=== PATIENT | female | born 1960 | race Caucasian/White ===

== ENCOUNTER → 2019-08-15 09:51 | Outpatient (BNVA) | payer MEDICARE, SELFPAY | PROVIDERS: Visit Provider Psychiatry & Neurology Psychiatry | DX: F33.2 Major depressive disorder, recurrent severe without psychotic features (principal) | CPT/HCPCS: 99213 ==

== ENCOUNTER → 2020-01-22 11:10 | Outpatient (BNVA) | payer MEDICARE, SELFPAY | PROVIDERS: Referring Provider Nurse Practitioner Family; Visit Provider Specialist | DX: M25.569 Pain in unspecified knee (principal) | CPT/HCPCS: 73560; 73565 ==

== ENCOUNTER 2020-02-15 12:13 | Outpatient (RCR) | payer MEDICARE, MEDICAID, SELFPAY | END 2020-03-13 23:59 | disposition home or self-care (01) | LOC: SPT 12:13 | PROVIDERS: PCP Nurse Practitioner Family; Visit Provider Specialist | DX: M17.12 Unilateral primary osteoarthritis, left knee (principal) | CPT/HCPCS: 97162; 99214 ==

== ENCOUNTER → 2020-06-20 08:35 | Outpatient (BNVA) | payer MEDICARE, SELFPAY | PROVIDERS: PCP Nurse Practitioner Family; Visit Provider Psychiatry & Neurology Psychiatry | DX: F41.1 Generalized anxiety disorder (principal); F33.1 Major depressive disorder, recurrent, moderate | CPT/HCPCS: 99213 ==

== ENCOUNTER → 2020-09-12 09:05 | Outpatient (BNVA) | payer MEDICARE, MEDICAID, SELFPAY | PROVIDERS: PCP Nurse Practitioner Family; Visit Provider Psychiatry & Neurology Psychiatry | DX: F41.1 Generalized anxiety disorder (principal); F33.1 Major depressive disorder, recurrent, moderate | CPT/HCPCS: 99213 ==

== ENCOUNTER → 2021-02-25 10:55 | Outpatient (BNVA) | payer MEDICARE, MEDICAID, SELFPAY | PROVIDERS: PCP Nurse Practitioner Family; Visit Provider Psychiatry & Neurology Psychiatry | DX: F41.1 Generalized anxiety disorder (principal); F33.1 Major depressive disorder, recurrent, moderate | CPT/HCPCS: 99214 ==

== ENCOUNTER → 2021-03-26 13:58 | Outpatient (BNVA) | payer MEDICARE, MEDICAID, SELFPAY | PROVIDERS: PCP Nurse Practitioner Family; Referring Provider Nurse Practitioner Family; Visit Provider Specialist | DX: M17.11 Unilateral primary osteoarthritis, right knee (principal) | CPT/HCPCS: 73560; 73565 ==

== ENCOUNTER → 2021-05-19 08:31 | Outpatient (BNVA) | payer MEDICARE, MEDICAID, SELFPAY | PROVIDERS: PCP Nurse Practitioner Family; Visit Provider Anesthesiology Pain Medicine | DX: M17.0 Bilateral primary osteoarthritis of knee (principal); M54.9 Dorsalgia, unspecified; Z87.891 Personal history of nicotine dependence | CPT/HCPCS: 99204 ==

== ENCOUNTER → 2021-05-20 13:23 | Outpatient (BNVA) | payer MEDICARE, MEDICAID, SELFPAY | PROVIDERS: PCP Nurse Practitioner Family; Visit Provider Psychiatry & Neurology Psychiatry | DX: F41.1 Generalized anxiety disorder (principal); F33.1 Major depressive disorder, recurrent, moderate | CPT/HCPCS: 99214 ==

== ENCOUNTER → 2021-06-16 10:16 | Outpatient (BNVA) | payer MEDICARE, MEDICAID, SELFPAY | PROVIDERS: PCP Nurse Practitioner Family; Visit Provider Anesthesiology Pain Medicine | DX: M17.0 Bilateral primary osteoarthritis of knee (principal); Z87.891 Personal history of nicotine dependence | CPT/HCPCS: 99214 ==

== ENCOUNTER → 2021-07-09 14:01 | Outpatient (BNVA) | payer MEDICARE, MEDICAID, SELFPAY | PROVIDERS: PCP Nurse Practitioner Family; Visit Provider Anesthesiology Pain Medicine | DX: Z87.891 Personal history of nicotine dependence (principal); M17.12 Unilateral primary osteoarthritis, left knee | CPT/HCPCS: 20610; 77002; J1030; J3490 ==

== ENCOUNTER → 2021-07-23 11:25 | Outpatient (BNVA) | payer MEDICARE, MEDICAID, SELFPAY | PROVIDERS: PCP Nurse Practitioner Family; Visit Provider Anesthesiology Pain Medicine | DX: M17.0 Bilateral primary osteoarthritis of knee (principal); M54.50 Low back pain, unspecified; Z87.891 Personal history of nicotine dependence | CPT/HCPCS: 99213 ==

== ENCOUNTER → 2021-09-16 12:40 | Outpatient (BNVA) | payer MEDICARE, MEDICAID, SELFPAY | PROVIDERS: PCP Nurse Practitioner Family; Visit Provider Psychiatry & Neurology Psychiatry | DX: F41.1 Generalized anxiety disorder (principal); F33.1 Major depressive disorder, recurrent, moderate | CPT/HCPCS: 99213 ==

== ENCOUNTER → 2021-12-09 07:17 | Outpatient (BNVA) | payer MEDICARE, MEDICAID, SELFPAY | PROVIDERS: PCP Nurse Practitioner Family; Visit Provider Psychiatry & Neurology Psychiatry | DX: F33.1 Major depressive disorder, recurrent, moderate (principal); F41.1 Generalized anxiety disorder | CPT/HCPCS: 99213 ==

== ENCOUNTER → 2022-03-31 08:44 | Outpatient (BNVA) | payer MEDICARE, SELFPAY | PROVIDERS: PCP Nurse Practitioner Family; Visit Provider Anesthesiology Pain Medicine | DX: M17.0 Bilateral primary osteoarthritis of knee (principal); Z87.891 Personal history of nicotine dependence; M54.9 Dorsalgia, unspecified | CPT/HCPCS: 99214 ==

== ENCOUNTER → 2022-04-13 13:55 | Outpatient (BNVA) | payer MEDICARE, MEDICAID, SELFPAY | PROVIDERS: PCP Nurse Practitioner Family; Visit Provider Anesthesiology Pain Medicine | DX: M17.9 Osteoarthritis of knee, unspecified (principal); M25.561 Pain in right knee; M25.562 Pain in left knee | CPT/HCPCS: 20610; J1040; J3490 ==

== ENCOUNTER → 2022-05-20 09:24 | Outpatient (BNVA) | payer MEDICARE, SELFPAY | PROVIDERS: PCP Nurse Practitioner Family; Visit Provider Anesthesiology Pain Medicine | DX: M17.0 Bilateral primary osteoarthritis of knee (principal); M54.9 Dorsalgia, unspecified | CPT/HCPCS: 99212 ==

== ENCOUNTER → 2022-09-28 12:46 | Outpatient (BNVA) | payer MEDICARE, SELFPAY | PROVIDERS: PCP Nurse Practitioner Family; Visit Provider Anesthesiology Pain Medicine | DX: M17.0 Bilateral primary osteoarthritis of knee (principal) | CPT/HCPCS: 20610 ==

== ENCOUNTER 2023-06-01 20:44 | Emergency (ER) | payer MEDICARE, MEDICAID, SELFPAY ==
[2023-06-01 20:46] VITALS: BP 185/89; PULSE 116; RESP 18; TEMP 36.7; O2SAT 96; BMI 71.2
--- NOTE | 2023-06-01 20:56 | XRR_ITS ---
PROCEDURE INFORMATION: Exam: XR Right Knee Exam date and time: 06/01/2023 9:06 PM Age: 62 years old Clinical indication: Pain; Knee; Right TECHNIQUE: Imaging protocol: Radiologic exam of the right knee. Views: 3 views. COMPARISON: No relevant prior studies available. FINDINGS: Bones/joints: Very severe tricompartment degenerative change with loss of joint space and osteophyte formation. No acute fracture or dislocation. Soft tissues: Unremarkable. XR/XR knee RT 3V* [id number] IMPRESSION: Very severe end-stage right knee DJD.
--- NOTE | 2023-06-01 20:56 | XRR_ITS ---
PROCEDURE INFORMATION: Exam: XR Left Knee Exam date and time: 06/01/2023 9:04 PM Age: 62 years old Clinical indication: Pain; Knee; Left TECHNIQUE: Imaging protocol: Radiologic exam of the left knee. Views: 3 views. COMPARISON: CR XR knees AP WB w LT lmt ORTH 01/22/2020 11:15 AM FINDINGS: Bones/joints: Very severe tricompartment degenerative change with loss of joint space and osteophyte formation. No acute fracture or dislocation. Soft tissues: Unremarkable. XR/XR knee LT 3V* [id number] IMPRESSION: Very severe end-stage left knee DJD.
[2023-06-01 20:59] VITALS: O2SAT 94
--- NOTE | 2023-06-01 20:59 | PC.NURSE ---
pt arrives on 3L NC, pt states she wears 3L at all times at home.
[2023-06-01] MEDS: HYDROcodone-acetaminophen 7.5-325 mg Tablet 1 TAB PO (21:42)
--- NOTE | 2023-06-01 21:44 | W.ED.EXTPRO ---
HPI - Extremity Problem General: Chief complaint: Extremity Problem,Nontraumatic Stated complaint: hip/leg pain Time Seen by Provider: 06/01/23 20:46 Source: patient and EMS Mode of arrival: EMS Limitations: no limitations History of Present Illness: 62-year-old female history of morbid obesity along with chronic knee pain she has been seeing pain management but states she has not seen her pain management in roughly 5 to 6 months. States she has been having increasing knee pain bilaterally and more difficult time walking. She does walk with a cane and a walker denies any injuries states her pains improved with rest Associated symptoms: Deny chest pain, fever(s) or rash Review of Systems Const: Denies: fever(s) or chills ENMT: Denies: throat pain or dental pain Card: Denies: chest pain Resp: Denies: dyspnea GI: Denies: abdominal pain, nausea, vomiting or diarrhea Musc: Reports: extremity pain; Denies: neck pain or back pain Skin/Breast: Denies: rash Neuro: Denies: headache(s) PFSH ED PFSH: Medical History Psychiatric care High cholesterol Anxiety Hypertension Stomach ulcer due to nonsteroidal anti-inflammatory drug (NSAID) Surgical History History of carpal tunnel release (~1997) JASON History of bunionectomy (~1994) Right foot History of weight loss surgery (~2015) Dr. Celestin at [facility] in [place], [place] History of hernia repair (~1997) Family History Mother Cancer Skin Cancer Denies family history of CAD (coronary artery disease) Anesthesia complication Social History Smoking and tobacco/nicotine status: former use of tobacco/nicotine Quit status (tobacco/nicotine): has quit using Year quit tobacco: 2000 Second hand smoke exposure: No Alcohol intake: never Substance/Drug Use: never Additional social history: Patient is morbidly obese. Failed weight loss surgery. Household members: family Housing: House Marital status: Single service: No Current gender identity: Female Physical Exam Const: COMMON NORMALS: no acute distress, patient oriented x3 and healthy appearing HENMT: COMMON NORMALS: normocephalic and atraumatic HEAD & SCALP: normocephalic and atraumatic Eye: COMMON NORMALS: Equal, round and reactive pupils present and EOMs intact bilaterally PUPIL: Yes Equal, round and reactive pupils present Neck/C-Spine: COMMON NORMALS: full ROM Chest: COMMONS NORMALS: normal inspection of the chest Resp: COMMON NORMALS: normal respiratory effort Extremity: NARRATIVE EXTREMITY EXAM: Tenderness over both knees distal pulses sensation intact no erythema or warmth Neuro: COMMON NORMALS: patient oriented x3, moves all extremities and no focal motor deficits Psych: COMMON NORMALS: mental status grossly normal, Normal thought process present and cooperative THOUGHT PROCESS: Normal thought process present Skin: COMMON NORMALS: no rashes or lesions noted and no wounds GENERAL SKIN EXAM: no rashes or lesions noted Course Vital Signs: Vital signs: Vital Signs Temperature 98.0 F 06/01/23 20:46 Pulse Rate 116 H 06/01/23 20:46 Respiratory Rate 18 06/01/23 20:46 Blood Pressure 185/89 06/01/23 20:46 Pulse Oximetry 94 06/01/23 20:59 Oxygen Delivery Me thod Nasal Cannula 06/01/23 20:59 Oxygen Flow Rate 3 06/01/23 20:59 MDM - Extremity (Nontraumatic) Medical Decision Making Patient presents here with bilateral knee pain likely from arthritis that is chronic in nature no acute findings no signs of septic joint patient stable for discharge she is to follow-up with her pain management. Medical Records I reviewed the patient's medical records. Lab Data Radiology Impressions Knee X-Ray 06/01/23 20:56 IMPRESSION: Very severe end-stage right knee DJD. XR interpretation done by ED provider, pending radiology final review ED provider radiology interpretation(s): xr knees bilateral: arthritis no fx Discharge Plan Discharge Patient Disposition: Home Clinical Impression: Bilateral knee pain Qualifiers: Chronicity: chronic Qualified Code(s): M25.561 - Pain in right knee Condition: Stable Prescriptions: New hydrocodone-acetaminophen 5-325 mg tablet 1 tab PO Q6H PRN (Reason: pain) Qty: 14 0RF No Action lisinopril 20 mg tablet 30 mg PO DAILY ferrous sulfate [Feosol] 325 mg (65 mg iron) tablet 325 mg PO .Twice Weekly gabapentin 300 mg capsule 300 mg PO TID Qty: 90 0RF pantoprazole 40 mg tablet,delayed release (DR/EC) 40 mg PO DAILY potassium gluconate 595 mg (99 mg) tablet 1,190 mg PO DAILY PRN cholecalciferol (vitamin D3) 1,250 mcg (50,000 unit) capsule 5,000 unit PO .Two Daily atorvastatin 40 mg tablet 40 mg PO DAILY phenazopyridine 100 mg tablet 100 mg PO TID PRN amitriptyline 150 mg tablet 150 mg PO .HS Qty: 90 0RF bupropion HCl [Wellbutrin XL] 300 mg tablet extended release 24 hr 300 mg PO QAM Qty: 90 0RF sertraline [Zoloft] 100 mg tablet 150 mg PO DAILY Qty: 135 0RF Discharge Orders: Discharge ED (Routine); Ordered 06/01/23 Ordered By: Korina Styles Referrals: Suzette Vargas FNP [Primary Care Provider] - 1-3 days Discharge Diet: Advance as tolerated Discharge Activity: Resume usual activity Patient Instructions: Knee Pain (ED) Coding Level of Care Code ED Civil Engineer Land [employer] for Lynne Grace
== END 2023-06-01 23:14 | disposition home or self-care (01) ==
PROVIDERS: Emergency Provider Emergency Medicine; PCP Nurse Practitioner Family
DX: M25.562 Pain in left knee (principal); M25.561 Pain in right knee; Z87.891 Personal history of nicotine dependence; I10 Essential (primary) hypertension
CPT/HCPCS: 73562; 99283

== ENCOUNTER 2023-06-11 18:43 | Emergency (ER) | payer MEDICARE, MEDICAID, SELFPAY ==
[2023-06-11 18:48] VITALS: BP 210/93; PULSE 107; RESP 20; TEMP 36.6; O2SAT 99; BMI 62.7
--- NOTE | 2023-06-11 19:25 | W.ED.PSYCHS ---
HPI - Psych General: Chief Complaint: Psychiatric Symptoms Stated Complaint: unable to walk, needs psych meds filled Time Seen by Provider: 06/11/23 18:48 History of Present Illness: Patient is a 62-year-old female that presents to the emergency department with complaints of increasing difficulty ambulating and worsening depression. Patient states her symptoms have been worsening for the last 2 months. Her depression is worse due to her mobility issues that are caused by advanced degenerative joint disease. She does have an orthopedic surgeon and scene painter. She is also set up with psychiatric services but patient has not followed up with any of these providers. Patient denies falls or injuries She denies any trauma at this time She denies any thoughts of harming herself or others. Review of Systems Const: Denies: fever(s) or chills ENMT: Denies: throat pain or dental pain Card: Denies: chest pain Resp: Denies: dyspnea GI: Denies: abdominal pain, nausea, vomiting or diarrhea Musc: Reports: extremity pain; Denies: neck pain or back pain Skin/Breast: Denies: rash Neuro: Denies: headache(s) PFSH ED PFSH: Medical History Psychiatric care High cholesterol Anxiety Hypertension Stomach ulcer due to nonsteroidal anti-inflammatory drug (NSAID) Surgical History History of carpal tunnel release (~1997) JASON History of bunionectomy (~1994) Right foot History of weight loss surgery (~2015) Dr. Celestin at [facility] in [place], [place] History of hernia repair (~1997) Family History Mother Cancer Skin Cancer Denies family history of CAD (coronary artery disease) Anesthesia complication Social History Smoking and tobacco/nicotine status: former use of tobacco/nicotine Quit status (tobacco/nicotine): has quit using Year quit tobacco: 2000 Second hand smoke exposure: No Alcohol intake: never Substance/Drug Use: never Additional social history: Patient is morbidly obese. Failed weight loss surgery. Household members: family Housing: House Marital status: Single service: No Current gender identity: Female Physical Exam Const: COMMON NORMALS: no acute distress, patient oriented x3 and healthy appearing HENMT: COMMON NORMALS: normocephalic and atraumatic HEAD & SCALP: normocephalic and atraumatic Eye: COMMON NORMALS: Equal, round and reactive pupils present and EOMs intact bilaterally PUPIL: Yes Equal, round and reactive pupils present Neck/C-Spine: COMMON NORMALS: full ROM Chest: COMMONS NORMALS: normal inspection of the chest Resp: COMMON NORMALS: normal respiratory effort Extremity: NARRATIVE EXTREMITY EXAM: Bilateral lower extremities: Skin is clean dry and intact There is no erythema warmth or drainage She is tender to palpation over anterior needs She has active range of motion although limited due to body habitus and pain. Patient has dorsiflexion plantarflexion of bilateral feet Patient has dorsiflexion of great toe Sensation intact to light touch at medial, lateral, dorsal, plantar surface of the foot and first webspace DP pulses palpable and cap refills less than 3 seconds Neuro: COMMON NORMALS: patient oriented x3, moves all extremities and no focal motor deficits Psych: COMMON NORMALS: mental status grossly normal, Normal thought process present and cooperative THOUGHT PROCESS: Normal thought process present Skin: COMMON NORMALS: no rashes or lesions noted and no wounds GENERAL SKIN EXAM: no rashes or lesions noted Course Vital Signs: Vital signs: Vital Signs Temperature 97.8 F 06/11/23 18:48 Pulse Rate 107 H 06/11/23 18:48 Respiratory Rate 20 H 06/11/23 18:48 Blood Pressure 210/93 06/11/23 18:48 Pulse Oximetry 99 06/11/23 18:48 Oxygen Delivery Me thod Room Air 06/11/23 18:48 MDM - Psych Medical Decision Making Patient was evaluated in the emergency department today due to chronic complaints of bilateral knee pain and worsening depression. Patient denies any thoughts of harming herself or others. She states she is here because she has not been able to successfully follow-up with her PCP for home equipment. This is limited her mobility and she is becoming increasingly frustrated. She denies any falls injuries or trauma. She states that this is the same knee pain she has had for years and it has not changed in 2 months. Patient states that she has also had a recent in the family that she was unable to leave her home for to go to the bedside or the services. This is made her very angry and sad. Patient does have a primary care doctor and they have been asked to assist with home equipment. A walker was ordered but not delivered. Update from nursing staff. Patient apparently was hotlined on 06/07/2023. Today, patient was visited by a territory service representative from the state. Her situation was evaluated and patient has been encouraged to seek placement in a nursing facility. Patient believes that coming to the emergency department would allow her to be admitted and transferred to a nursing facility faster. Unfortunately patient does not meet criteria for admission. Her situation is chronic in nature. She has support in the community. She is can to be discharged home and will be transported by ambulance. She is to return to the emergency department for new concerning or worsening symptom No radiology studies performed this visit Discharge Plan Discharge Patient Disposition: Home Clinical Impression: Primary osteoarthritis of left knee, Morbid obesity with body mass index of 60.0-69.9 in adult, Major depressive disorder, recurrent, moderate, Primary osteoarthritis of right knee Condition: Stable Prescriptions: No Action lisinopril 20 mg tablet 30 mg PO DAILY ferrous sulfate [Feosol] 325 mg (65 mg iron) tablet 325 mg PO .Twice Weekly gabapentin 300 mg capsule 300 mg PO TID Qty: 90 0RF pantoprazole 40 mg tablet,delayed release (DR/EC) 40 mg PO DAILY potassium gluconate 595 mg (99 mg) tablet 1,190 mg PO DAILY PRN cholecalciferol (vitamin D3) 1,250 mcg (50,000 unit) capsule 5,000 unit PO .Two Daily atorvastatin 40 mg tablet 40 mg PO DAILY phenazopyridine 100 mg tablet 100 mg PO TID PRN amitriptyline 150 mg tablet 150 mg PO .HS Qty: 90 0RF bupropion HCl [Wellbutrin XL] 300 mg tablet extended release 24 hr 300 mg PO QAM Qty: 90 0RF sertraline [Zoloft] 100 mg tablet 150 mg PO DAILY Qty: 135 0RF hydrocodone-acetaminophen 5-325 mg tablet 1 tab PO Q6H PRN (Reason: pain) Qty: 14 0RF Discharge Orders: Discharge ED (Routine); Ordered 06/11/23 Ordered By: Mark Montelongo Other Ambulatory Orders: DME: Wheelchair (Order) Location: None Selected Ordered By: Mark Montelongo Referrals: Suzette Vargas FNP [Primary Care Provider] - Discharge Diet: Advance as tolerated Discharge Activity: Resume usual activity Patient Instructions: Pain Management Activity Restrictions/Additional Instructions: You are going to be transported by EMS back to your home. We have encouraged you to set up additional resources in the home while you await additional support by family, primary care provider, and social workers. You are to return to the emergency department should you have any falls, develop chest pain, shortness of breath or other worrisome symptom. Coding Level of Care Code ED Draw Furnace Tender for Lynne Grace
--- NOTE | 2023-06-15 13:21 | PC.SOCIAL ---
DME Wheelchair: Spoke with [facility] who states that since she cannot use the wheelchair in her home due to the size of the chair, her insurance will not cover the cost. It will cost patient $210/month. F/u Appt: Called Suzette Vargas's office, had to leave a voicemail, but requested a call back to schedule patient a follow up appointment. Called patient to check on her and provide what CM has found. Unable to reach, voicemail left.
== END 2023-06-11 23:43 | disposition home or self-care (01) ==
PROVIDERS: Emergency Provider Nurse Practitioner; PCP Nurse Practitioner Family
DX: F33.1 Major depressive disorder, recurrent, moderate (principal); M17.0 Bilateral primary osteoarthritis of knee; E66.01 Morbid (severe) obesity due to excess calories; Z68.44 Body mass index [BMI] 60.0-69.9, adult; Z87.891 Personal history of nicotine dependence; I10 Essential (primary) hypertension
CPT/HCPCS: 99281

== ENCOUNTER 2023-06-29 11:59 | Emergency (ER) | payer MEDICARE, MEDICAID, SELFPAY ==
--- NOTE | 2023-06-29 12:16 | W.ED.GENADLT ---
HPI - General Adult General: Chief complaint: Dizziness Stated complaint: Dizzieness Time Seen by Provider: 06/29/23 12:02 Source: patient and EMS Mode of arrival: EMS Limitations: no limitations History of Present Illness: Patient is a 62-year-old female presents to ED today via EMS for complaints of a little bit of lightheadedness and nausea . She states symptoms started today. She has no complaints of abdominal pain. She has not had any episodes of vomiting. She is stooling and urinating normally. No fevers. She does not complain of a headache or neck pain. No visual changes or visual loss. No neurologic complaints/deficits. She has no complaints of chest pain, palpitations, shortness of breath, or difficulty breathing. She states despite the lightheadedness she has been able to ambulate and continue to care for herself normally. Onset (ago): hour(s) Severity: mild Relieving factors: none Exacerbating factors: none Associated symptoms: Reports nausea; Deny chest pain, confusion, dyspnea, headache(s), malaise, rash, palpitations, syncope or vomiting Treatments prior to arrival: none Review of Systems Const: Denies: fever(s), chills, body aches, fatigue or malaise Eyes: Denies: change in vision, blurry vision, blind spots, photophobia, floaters or seeing flashes Card: Reports: lightheadedness; Denies: chest pain, palpitations, irregular heart rhythm, edema, swelling of feet/ankles, syncope, pre-syncope, dyspnea on exertion, orthopnea, leg pain with exertion or acrocyanosis Resp: Denies: dyspnea, productive cough, non-productive cough, wheezing, change in phlegm color, hemoptysis or chest congestion GI: Reports: nausea; Denies: abdominal pain, vomiting, diarrhea or change in bowel habits : Denies: flank pain, difficulty voiding, dysuria, urinary frequency, urinary urgency or urinary hesitancy Musc: Reports: back pain (chronic) and other (chronic restless legs); Denies: neck pain, extremity pain, extremity swelling or joint pain Skin/Breast: Denies: rash Neuro: Denies: headache(s), numbness in extremities, weakness in extremities, sensory changes, lack of coordination, difficulty walking, frequent falls, vertigo, confusion, behavioral changes, Slurred speech present, difficulty communicating thoughts or seizure-like activity [facility] ED PFSH: Medical History Psychiatric care High cholesterol Anxiety Hypertension Stomach ulcer due to nonsteroidal anti-inflammatory drug (NSAID) Surgical History History of carpal tunnel release (~1997) JASON History of bunionectomy (~1994) Right foot History of weight loss surgery (~2015) Dr. Celestin at [facility] in [place], [place] History of hernia repair (~1997) Family History Mother Cancer Skin Cancer Denies family history of CAD (coronary artery disease) Anesthesia complication Social History Smoking and tobacco/nicotine status: former use of tobacco/nicotine Quit status (tobacco/nicotine): has quit using Year quit tobacco: 2000 Second hand smoke exposure: No Alcohol intake: never Substance/Drug Use: never Additional social history: Patient is morbidly obese. Failed weight loss surgery. Household members: family Housing: House Marital status: Single service: No Current gender identity: Female Physical Exam Const: COMMON NORMALS: no acute distress, patient oriented x3, no limitations and alert GENERAL APPEARANCE: cooperative NUTRITIONAL APPEARANCE: obese morbidly obese (BMI almost 70) ORIENTATION/CONSCIOUSNESS: Yes awake, Yes oriented to person, Yes oriented to place and Yes oriented to time HENMT: COMMON NORMALS: normocephalic and atraumatic HEAD & SCALP: normal to inspection, normocephalic and atraumatic FACE & SINUS: face symmetric Eye: COMMON NORMALS: Equal, round and reactive pupils present, EOMs intact bilaterally and conjunctivae normal GENERAL EYE: appearance normal, both eyes and all related structures and normal light reflex CONJUNCTIVA: Yes conjunctivae normal PUPIL: Yes Equal, round and reactive pupils present DIRECT OPHTHALMOSCOPY: Yes normal light reflex OTHER: no nystagmus Neck/C-Spine: COMMON NORMALS: full ROM and no lymphadenopathy GENERAL: Yes normal visual inspection Resp: COMMON NORMALS: normal respiratory effort and clear to auscultation bilaterally AUSCULTATION: clear to auscultation bilaterally Cardio: COMMON NORMALS: regular rate and regular rhythm RATE: regular rate RHYTHM: regular rhythm GI: COMMON NORMALS: Normal to inspection, nondistended, normoactive bowel sounds present, Soft to palpation and non-tender PALPATION: Yes Soft to palpation : COMMON NORMALS: Yes no CVA tenderness BLADDER/KIDNEY EXAM: Yes no CVA tenderness Back/Pelvis: COMMON NORMALS: no CVA tenderness Extremity: COMMON NORMALS: normal to inspection GENERAL: Yes normal exam except as noted Neuro: OLGA COMA SCALE: document GCS findings Sunbright coma scale eye opening: Spontaneous Sunbright coma scale verbal response: Orientated Sunbright coma scale motor response: Obey commands Sunbright coma scale total score: 15 COMMON NORMALS: patient oriented x3, CN's II-XII intact bilaterally, moves all extremities, no focal motor deficits and no sensory deficits noted SENSORIUM/ORIENTATION: Yes alert, Yes oriented to person, Yes oriented to place and Yes oriented to time Skin: COMMON NORMALS: no rashes or lesions noted GENERAL SKIN EXAM: no rashes or lesions noted Course Vital Signs: Vital signs: Vital Signs Temperature 98.2 F 06/29/23 12:19 Pulse Rate 89 06/29/23 12:53 Respiratory Rate 18 06/29/23 12:19 Blood Pressure 168/81 06/29/23 12:53 Pulse Oximetry 92 06/29/23 12:53 Oxygen Delivery Me thod Room Air 06/29/23 12:53 [facility] - General Adult Medical Decision Making Patient appears in no acute distress. She arrives with stable vital signs. She is slightly hypertensive which she has a history of. She states she does not check her blood pressure at home. She states it has been over a year since she has seen her primary care provider. Her complaint today is some mild lightheadedness and nausea. She has no complaints of abdominal pain or vomiting. She has no chest pain or palpitations. No neurologic symptoms. She is able to ambulate normally. I have no concern for emergent etiology for her symptoms today. Blood work showing microcytic anemia. Hemoglobin is 10.8 with no previous comparisons. She has no history of bloody vomit or dark or tarry stools. No history of GI bleeds. She is not on anticoagulation. This can be rechecked through her primary care office. Chemistry panel showing mildly elevated glucose at 167. She is not a known diabetic. Primary care can also run a hemoglobin A1c on her. She has no urinary complaints at this time thus UA was not collected. Patient is stable for discharge from an ED standpoint. I will place case management referral to get her set up with a follow-up appointment. Return ED precautions given. Medical Records I reviewed the patient's medical records. Lab Data I reviewed the patient's lab results. 06/29/23 12:31 06/29/23 12:31 Laboratory Results WBC 6.92 10^3/uL (3.29-11.43) 06/29/23 12: RBC 5.35 10^6/uL (3.85-5.65) 06/29/23 12: Hgb 10.80 g/dL (11.27-16.99) L 06/29/23 12:31 Hct 39.5 % (36-47) 06/29/23 12:31 MCV 73.8 fl (85-98) L 06/29/23 12:31 MCH 20.2 pg (27-33) L 06/29/23 12:31 MCHC 27.3 g/dL (30-55) L 06/29/23 12:31 RDW 19.3 % (12.1-15.1) H 06/29/23 12:31 Plt Count 446 10^3/cmm (157-399) H 06/29/23 12:31 MPV 8.4 fL (7.4-10.4) 06/29/23 12:31 Neut % (Auto) 62.6 % 06/29/23 12:31 Lymph % (Auto) 26.0 % 06/29/23 12:31 [place] % (Auto) 7.7 % 06/29/23 12:31 Eos % (Auto) 2.2 % 06/29/23 12:31 Baso % (Auto) 1.2 % 06/29/23 12:31 Neut # (Auto) 4.34 10^3/uL (1.8-7.7) 06/29/23 12: Lymph # (Auto) 1.8 10^3/uL (0.8-4.8) 06/29/23 12:31 [place] # (Auto) 0.5 10^3/uL (0.2-0.9) 06/29/23 12:31 Eos # (Auto) 0.2 10^3/uL (0.0-0.8) 06/29/23 12:31 Baso # (Auto) 0.1 10^3/uL (0.0-0.1) 06/29/23 12:31 Nucleated RBC % (auto) 0 % 06/29/23 12:31 Nucleated RBCs # 0.0 /100WBC 06/29/23 12:31 Sodium 145 mmol/L (136-145) 06/29/23 12:31 Potassium 4.5 mmol/L (3.5-5.1) 06/29/23 12:31 Chloride 104 mmol/L (98-107) 06/29/23 12:31 Carbon Dioxide 33 mmol/L (22-29) H 06/29/23 12:31 Anion Gap 12.5 (5-19) 06/29/23 12:31 BUN 10 mg/dL (8-23) 06/29/23 12:31 Creatinine 0.6 mg/dL (0.5-0.9) 06/29/23 12:31 GFR Calculation 101.0 mL/min (90-130) 06/29/23 12:31 Glucose 167 mg/dL (65-115) H 06/29/23 12:31 Calculated Osmolality 303 mOsm/kg (285-295) H 06/29/23 12:31 Calcium 8.9 mg/dL (8.5-10.5) 06/29/23 12:31 Total Bilirubin 0.6 mg/dL (0.15-1.2) 06/29/23 12:31 AST 19 U/L (0-32) 06/29/23 12:31 ALT 7 U/L (0-33) 06/29/23 12:31 Alkaline Phosphatase 82 U/L (35-105) 06/29/23 12:31 Total Protein 6.9 g/dL (6.6-8.7) 06/29/23 12:31 Albumin 3.6 g/dL (3.5-5.2) 06/29/23 12:31 Globulin 3.3 g/dL (1.3-4.6) 06/29/23 12:31 No radiology studies performed this visit Discharge Plan Discharge Patient Disposition: Home Clinical Impression: Light-headed feeling, Nausea Condition: Stable Prescriptions: No Action lisinopril 20 mg tablet 30 mg PO DAILY ferrous sulfate [Feosol] 325 mg (65 mg iron) tablet 325 mg PO .Twice Weekly gabapentin 300 mg capsule 300 mg PO TID Qty: 90 0RF pantoprazole 40 mg tablet,delayed release (DR/EC) 40 mg PO DAILY potassium gluconate 595 mg (99 mg) tablet 1,190 mg PO DAILY PRN cholecalciferol (vitamin D3) 1,250 mcg (50,000 unit) capsule 5,000 unit PO .Two Daily atorvastatin 40 mg tablet 40 mg PO DAILY phenazopyridine 100 mg tablet 100 mg PO TID PRN amitriptyline 150 mg tablet 150 mg PO .HS Qty: 90 0RF bupropion HCl [Wellbutrin XL] 300 mg tablet extended release 24 hr 300 mg PO QAM Qty: 90 0RF sertraline [Zoloft] 100 mg tablet 150 mg PO DAILY Qty: 135 0RF hydrocodone-acetaminophen 5-325 mg tablet 1 tab PO Q6H PRN (Reason: pain) Qty: 14 0RF Discharge Orders: Discharge ED (Routine); Ordered 06/29/23 Ordered By: Rachana Chin Referrals: Suzette Vargas FNP [Primary Care Provider] - Activity Restrictions/Additional Instructions: As we discussed I want you to follow-up with your primary care provider for further evaluation especially if symptoms persist. As we discussed you were found to be anemic today. I do not have any previous comparisons for baseline. These can be compared by your primary care provider or repeated. We also discussed your blood sugars being slightly elevated. They can also evaluate for this further. Coding Level of Care Code ED Environmental Control Administrator for Lynne Grace
[2023-06-29 12:19] VITALS: BP 166/76; RESP 18; TEMP 36.8; O2SAT 93; BMI 69.7
[2023-06-29 12:41] LABS: Basophils # 0.1 10^3/uL (0.0-0.1); Basophils % 1.2 %; Eosinophils # 0.2 10^3/uL (0.0-0.8); Eosinophils % 2.2 %; Hematocrit 39.5 % (36-47); Lymphocytes # 1.8 10^3/uL (0.8-4.8); Mean Corpuscular HGB Conc 27.3 g/dL (30-55); Mean Corpuscular Hemoglobin 20.2 pg (27-33); Mean Corpuscular Volume 73.8 fl (85-98); Mean Platelet Volume 8.4 fL (7.4-10.4); Monocytes # 0.5 10^3/uL (0.2-0.9); Monocytes % 7.7 %; Neutrophils # 4.34 10^3/uL (1.8-7.7); Neutrophils % 62.6 %; Nucleated Red Blood Cells % 0 %; Platelet Count 446 10^3/cmm (157-399); Red Blood Count 5.35 10^6/uL (3.85-5.65); Red Cell Distribution Width 19.3 % (12.1-15.1); White Blood Count 6.92 10^3/uL (3.29-11.43)
[2023-06-29] MEDS: meclizine 25 mg tablet 50 MG PO (12:47)
[2023-06-29 12:53] VITALS: BP 168/81; PULSE 89; O2SAT 92
[2023-06-29 12:59] LABS: Alanine Aminotransferase 7 U/L (0-33); Albumin Level 3.6 g/dL (3.5-5.2); Alkaline Phosphatase 82 U/L (35-105); Anion Gap 12.5 (5-19); Aspartate Amino Transferase 19 U/L (0-32); Blood Urea Nitrogen 10 mg/dL (8-23); Calcium 8.9 mg/dL (8.5-10.5); Carbon Dioxide 33 mmol/L (22-29); Chloride 104 mmol/L (98-107); Globulin 3.3 g/dL (1.3-4.6); Glucose 167 mg/dL (65-115); Osmolality Calculated 303 mOsm/kg (285-295); Potassium 4.5 mmol/L (3.5-5.1); Sodium 145 mmol/L (136-145); Total Bilirubin 0.6 mg/dL (0.15-1.2); Total Protein 6.9 g/dL (6.6-8.7)
[2023-06-29 14:08] VITALS: BP 165/78; PULSE 84; RESP 19; O2SAT 98
== END 2023-06-29 14:09 | disposition home or self-care (01) ==
PROVIDERS: Emergency Provider Physician Assistant; PCP Nurse Practitioner Family
DX: R42 Dizziness and giddiness (principal); R11.0 Nausea; Z87.891 Personal history of nicotine dependence; I10 Essential (primary) hypertension
CPT/HCPCS: 36415; 80053; 85025; 99283; J8597

== ENCOUNTER → 2024-09-18 11:29 | Outpatient (BNVA) | payer MEDICARE, MEDICAID, SELFPAY | PROVIDERS: PCP Nurse Practitioner Family; Referring Provider Family Medicine; Visit Provider Anesthesiology Pain Medicine | DX: M17.11 Unilateral primary osteoarthritis, right knee (principal); M17.12 Unilateral primary osteoarthritis, left knee; M54.9 Dorsalgia, unspecified | CPT/HCPCS: 99213 ==

== ENCOUNTER 2024-09-21 09:34 | Outpatient (CLI) | payer MEDICARE, MEDICAID, SELFPAY ==
--- NOTE | 2024-09-21 09:38 | FL_ITS ---
WS: [id number] Exam: FL barium swallow modifd [id number] Date/Time of Exam: 09/21/2024 10:00 AM Reason For Exam: Other dysphagia Fluoroscopy time: 3min [id number] minutes # of spot films: 0 Modified barium swallow test was performed in conjunction with the speech therapy service. Oropharyngeal phase of swallowing was normal. The patient tolerated all consistencies of barium mixture foodstuffs without aspiration or penetration. The patient swallowed a barium tablet without difficulty. The tablet appeared to be retained within a moderate sized hiatal hernia. FL/FL barium swallow modifd [id number] IMPRESSION: 1. No aspiration or penetration identified. A separate report and recommendations will follow from the speech therapy servi ce.
== END 2024-09-21 09:35 | disposition home or self-care (01) ==
LOC: RAD 09:35
PROVIDERS: PCP Family Medicine; Visit Provider Family Medicine
DX: R13.10 Dysphagia, unspecified (principal); K44.9 Diaphragmatic hernia without obstruction or gangrene
CPT/HCPCS: 74230; 92611

== ENCOUNTER → 2024-09-27 09:39 | Outpatient (BNVA) | payer MEDICARE, MEDICAID, SELFPAY | PROVIDERS: PCP Family Medicine; Visit Provider Anesthesiology Pain Medicine | DX: M25.561 Pain in right knee (principal); M25.562 Pain in left knee | CPT/HCPCS: 20610; 99214; J1010; J3490 ==

== ENCOUNTER 2025-01-08 10:50 | Outpatient (CLI) | payer MEDICARE, MEDICAID, SELFPAY | END 2025-01-08 10:51 | disposition home or self-care (01) | PROVIDERS: PCP Family Medicine; Visit Provider Internal Medicine Pulmonary Disease | DX: M17.0 Bilateral primary osteoarthritis of knee (principal); G47.33 Obstructive sleep apnea (adult) (pediatric); G47.36 Sleep related hypoventilation in conditions classified elsewhere | CPT/HCPCS: 20610; 99213; G0399; J1010; J3490 ==

== ENCOUNTER 2025-04-26 08:23 | Outpatient (CLI) | payer MEDICARE, MEDICAID, SELFPAY ==
--- NOTE | 2025-04-26 08:27 | MM_ITS ---
WS: [id number] BILATERAL 3D TOMOSYNTHESIS DIGITAL DIAGNOSTIC MAMMOGRAPHY WITH CAD CLINICAL INFORMATION: BREAST DISCHARGE LEFT HISTORY: LEFT breast discharge COMPARISON: 2017 TECHNIQUE: Bilateral CC, MLO, and ML views. FINDINGS: Scattered fibroglandular densities bilaterally. A few tiny incidental punctate calcifications. No suspicious LEFT subareolar densities. Ultrasound is pending. ULTRASOUND BREAST LEFT TECHNIQUE: Ultrasound left breast focused area of concern. CLINICAL INFORMATION: BREAST DISCHARGE FINDINGS: No suspicious LEFT subareolar abnormalities. No cystic or solid lesions. No lesions to target for biopsy. Recommend return to annual screening mammography MM/MM diag tomosynthesis [id number] IMPRESSION: DENSITY: There are scattered areas of fibroglandular density. BI-RADS: 2 - Benign. FOLLOW UP: 1 Year Follow-up Recommend return to annual screening mammography.
== END 2025-04-26 08:24 | disposition home or self-care (01) ==
LOC: RAD 08:24
PROVIDERS: PCP Family Medicine; Visit Provider Family Medicine
DX: N64.52 Nipple discharge (principal); R92.323 Mammographic fibroglandular density, bilateral breasts
CPT/HCPCS: 76642; 77062; G0279